=== PATIENT | male | born 1970 | race Caucasian/White ===

== ENCOUNTER → 2017-11-11 14:40 | Outpatient (CLI) | payer OTHER, SELFPAY ==
[2017-11-11 16:06] LABS: AST(SGOT) 81 U/L (15-37); Alanine Aminotransfer ALT/SGPT 136 U/L (16-61); Alkaline Phosphatase 89 U/L (45-117); Bilirubin, Direct 0.18 mg/dL (0.00-0.30); Cholesterol 184 mg/dL (200); Globulin 3.7 g/dL (2.2-4.2); High Density Lipoprotein 53 mg/dL; Protein, Total 7.7 g/dL (6.4-8.2); Triglycerides 93 mg/dL; Very Low Density Lipoprotein 19 mg/dL (5-40)
== END ==
PROVIDERS: Visit Provider Family Medicine
DX: R74.8 Abnormal levels of other serum enzymes (principal); E78.5 Hyperlipidemia, unspecified
CPT/HCPCS: 36415; 80061; 80076

== ENCOUNTER → 2018-05-06 15:38 | Outpatient (CLI) | payer OTHER, SELFPAY ==
[2018-05-06 17:50] LABS: AST(SGOT) 87 U/L (15-37); Alanine Aminotransfer ALT/SGPT 160 U/L (16-61); Albumin, Serum 4.2 g/dL (3.2-5.0); Alkaline Phosphatase 92 U/L (45-117); Anion Gap 11 (5-15); BUN 14 mg/dL (7-18); BUN/Creat Ratio 14.6 RATIO (10-20); Bilirubin, Direct 0.17 mg/dL (0.00-0.30); Chloride 102 mmol/L (98-107); Cholesterol 192 mg/dL (200); Creatinine, Serum 0.96 mg/dL (0.70-1.30); EST Glomerular Filtration Rate 89 mL/min (>60); Est Glom Filt Rate - Afr Amer 107 mL/min (>60); Globulin 3.8 g/dL (2.2-4.2); Glucose 80 mg/dL (74-106); High Density Lipoprotein 52 mg/dL; Potassium 3.8 mmol/L (3.5-5.1); Sodium Level 136 mmol/L (136-145); Triglycerides 107 mg/dL; Very Low Density Lipoprotein 21 mg/dL (5-40)
== END ==
PROVIDERS: Nurse Practitioner Family; Family Provider Family Medicine; PCP Family Medicine; Visit Provider Family Medicine
DX: Z00.00 Encounter for general adult medical examination without abnormal findings (principal)
CPT/HCPCS: 36415; 80048; 80061; 80076

== ENCOUNTER → 2019-05-10 15:21 | Outpatient (CLI) | payer OTHER, SELFPAY ==
[2019-05-10 17:53] LABS: ALB/GLOB Ratio 1.1 RATIO (0.9-2.4); AST(SGOT) 148 U/L (15-37); Alanine Aminotransfer ALT/SGPT 295 U/L (16-61); Albumin, Serum 4.1 g/dL (3.2-5.0); Alkaline Phosphatase 85 U/L (45-117); Anion Gap 9 (5-15); BUN 12 mg/dL (7-18); BUN/Creat Ratio 13.1 RATIO (10-20); Calcium,Total 9.2 mg/dL (8.5-10.1); Chloride 103 mmol/L (98-107); Cholesterol 204 mg/dL (200); Creatinine, Serum 0.92 mg/dL (0.70-1.30); EST Glomerular Filtration Rate 93 mL/min (>60); Est Glom Filt Rate - Afr Amer 112 mL/min (>60); Globulin 3.9 g/dL (2.2-4.2); Glucose 87 mg/dL (74-106); High Density Lipoprotein 61 mg/dL; Potassium 4.2 mmol/L (3.5-5.1); Sodium Level 140 mmol/L (136-145); Triglycerides 110 mg/dL; Very Low Density Lipoprotein 22 mg/dL (5-40)
== END ==
PROVIDERS: Family Provider Family Medicine; PCP Family Medicine; Referring Provider Family Medicine; Visit Provider Family Medicine
DX: Z00.00 Encounter for general adult medical examination without abnormal findings (principal)
CPT/HCPCS: 36415; 80053; 80061

== ENCOUNTER → 2019-05-31 10:10 | Outpatient (CLI) | payer OTHER, SELFPAY ==
--- NOTE | 2019-05-31 10:12 | US_ITS ---
STUDY: ABDOMINAL ULTRASOUND - RIGHT UPPER QUADRANT REASON FOR VISIT: Male, 48 years old transaminitis. TECHNIQUE: Ultrasound evaluation of the right upper quadrant was performed with real-time and static boyer-scale imaging. TECHNICAL QUALITY: Adequate. COMPARISON: January 28, 2014 FINDINGS: Liver: The liver measures 14.8 cm. There is increased echogenicity consistent with fatty infiltration. The bile ducts are within normal limits. There is hepatic color flow. The direction of portal flow is hepatopetal. There is no demonstrated mass lesion. Gallbladder: Normal distended gallbladder. The gallbladder wall measures 1.8 mm. There is a negative sonographic Wilson's sign. There is no pericholecystic fluid. There are no gallstones. Common Bile Duct (C.B.D.): The common bile duct measures 3.1 mm. Pancreas: Normal size of the head and body of the pancreas. There is obscuration of the pancreatic tail secondary to overlying bowel gas. There is normal echogenicity of the pancreas. There is no demonstrated pancreatic mass or cyst. Right Kidney: Normal size of the right kidney. The right kidney measures 11.1 cm in length. Normal renal cortex. There is no demonstrated renal mass or cyst. There is no right hydronephrosis. US/Abdomen Limited IMPRESSION: Fatty infiltration of the liver. Electronically Signed: Johana Buck MD at 16:22 EDT Tel , Service support ,
== END ==
PROVIDERS: Family Provider Family Medicine; PCP Family Medicine; Referring Provider Family Medicine; Visit Provider Family Medicine
DX: R74.0 Nonspecific elevation of levels of transaminase and lactic acid dehydrogenase [LDH] (principal)
CPT/HCPCS: 76705

== ENCOUNTER → 2020-02-03 15:17 | Outpatient (CLI) | payer OTHER, SELFPAY ==
--- NOTE | 2020-02-03 11:04 | COLBX_PTH ---
PATIENT: ROSIBEL CHAMPAGNE LOC: [facility] U#:[id number] AGE/SX: 54/M ROOM: RE02/03/[address]: Dr. Omkar Zabala MD : 1970 BED: DIS: SPEC #: [id number] RECD: 02/03/20 14:54 STATUS: MARLA BEAR #: [id number] PURNIMA: 02/03/20 11:[address]: Omkar Zabala DEPT: SURGICAL PATHOLOGY RECD BY: Darien Weber ENTERED: 02/06/20 09:12 SP TYPE: COLON BX OTHR DR: Dr. Vinnie Palacios MD [facility] Tissues: COLON BIOPSY Procedures: Surgery Specimen Level IV HEADER OPERATION: Colonoscopy with biopsies PRE-OP DIAGNOSIS: Screening / polyp TISSUE SUBMITTED: Right colon polyp biopsies, rule out adenoma MICROSCOPIC DIAGNOSIS Right colon polyp, biopsy: Fragments of colonic mucosa with focal tubular adenomatous changes. SJ:becky 6/23/20 MICROSCOPIC DESCRIPTION Slides are reviewed. GROSS DESCRIPTION Received in fixative is one container labeled with the patient's name and designated right colon polyp biopsy. The specimen consists of multiple irregular fragments of light bender soft tissue that in aggregate measure 0.5 x 0.5 x 0.1 cm. The specimen is totally submitted in one cassette. / SJ:rg 02/06/20 TC:1 CPT: 46141
== END ==
PROVIDERS: PCP Family Medicine; Referring Provider Internal Medicine Gastroenterology; Visit Provider Internal Medicine Gastroenterology
DX: Z12.11 Encounter for screening for malignant neoplasm of colon (principal); K63.5 Polyp of colon
CPT/HCPCS: 88305

== ENCOUNTER → 2020-06-04 | Outpatient (CLI) | payer OTHER, SELFPAY ==
[2020-06-04 18:50] LABS: ALB/GLOB Ratio 1.1 RATIO (0.9-2.4); AST(SGOT) 111 U/L (15-37); Alanine Aminotransfer ALT/SGPT 296 U/L (16-61); Albumin, Serum 4.1 g/dL (3.2-5.0); Alkaline Phosphatase 93 U/L (45-117); Anion Gap 7 (5-15); BUN 15 mg/dL (7-18); BUN/Creat Ratio 17.5 RATIO (10-20); Chloride 100 mmol/L (98-107); Cholesterol 215 mg/dL (200); Creatinine, Serum 0.86 mg/dL (0.70-1.30); EST Glomerular Filtration Rate 100 mL/min (>60); Est Glom Filt Rate - Afr Amer 121 mL/min (>60); Globulin 3.7 g/dL (2.2-4.2); Glucose 83 mg/dL (74-106); High Density Lipoprotein 69 mg/dL; Potassium 3.9 mmol/L (3.5-5.1); Protein, Total 7.8 g/dL (6.4-8.2); Sodium Level 136 mmol/L (136-145); Triglycerides 86 mg/dL; Very Low Density Lipoprotein 17 mg/dL (5-40)
== END | disposition home or self-care (01) ==
LOC: MFPLAB 16:24
PROVIDERS: PCP Family Medicine; Visit Provider Family Medicine
DX: Z00.00 Encounter for general adult medical examination without abnormal findings (principal)
CPT/HCPCS: 36415; 80053; 80061

== ENCOUNTER 2020-10-25 16:54 | Outpatient (RCR) | payer OTHER, SELFPAY ==
[2020-10-25] MEDS: COVID-19 VACC, MRNA(PFIZER)/PF 30 MCG/0.3 ML SYRINGE IM (16:35)
[2020-11-15] MEDS: COVID-19 VACC, MRNA(PFIZER)/PF 30 MCG/0.3 ML SYRINGE IM (16:26)
== END 2021-01-22 23:59 ==
LOC: IMMUN 16:54
PROVIDERS: PCP Family Medicine; Visit Provider Family Medicine
DX: Z23 Encounter for immunization (principal)
CPT/HCPCS: 0001A; 0002A; 91300

== ENCOUNTER → 2021-05-28 15:10 | Outpatient (CLI) | payer OTHER, SELFPAY ==
[2021-05-28 18:11] LABS: Vitamin D,25 Hydroxy 30.6 ng/mL
[2021-05-28 18:39] LABS: Anion Gap 9 (5-15); BUN 17 mg/dL (7-18); BUN/Creat Ratio 18.2 RATIO (10-20); Calcium,Total 9.1 mg/dL (8.5-10.1); Chloride 98 mmol/L (98-107); Cholesterol 205 mg/dL (200); Creatinine, Serum 0.93 mg/dL (0.70-1.30); EST Glomerular Filtration Rate 90 mL/min (>60); Est Glom Filt Rate - Afr Amer 109 mL/min (>60); Glucose 88 mg/dL (74-106); High Density Lipoprotein 60 mg/dL; Potassium 4.2 mmol/L (3.5-5.1); Sodium Level 134 mmol/L (136-145); Triglycerides 192 mg/dL; Very Low Density Lipoprotein 38 mg/dL (5-40)
== END ==
PROVIDERS: PCP Family Medicine; Referring Provider Family Medicine; Visit Provider Family Medicine
DX: Z00.00 Encounter for general adult medical examination without abnormal findings (principal)
CPT/HCPCS: 36415; 80048; 80061; 82306; 84153; G0103

== ENCOUNTER → 2023-04-27 | Outpatient (CLI) | payer OTHER, SELFPAY ==
[2023-04-27 17:45] LABS: Absolute Lymphocyte Count 1.73 X10^3/uL (0.83-4.51); Absolute Neutrophil Count 3.9 X10^3/uL (2.0-7.7); Basophil# 0.04 X10^3/uL; Basophil% 0.6 % (0-1); Eosinophil# 0.11 X10^3/uL; Eosinophils% 1.7 % (0-5); Hematocrit 49.1 % (40-54); Hemoglobin 16.6 g/dL (13.0-16.5); Lymphocyte # 1.73 X10^3/ul (0.83-4.51); Lymphocyte % 26.5 % (19-41); Mean Corp Hgb Conc 33.8 g/dL (32-36); Mean Corpuscular Hgb 32.4 pg (27.0-32.0); Mean Corpuscular Volume 95.7 fL (80-94); Mean Platelet Vol. 11.4 fl (6.2-12.0); Monocyte# 0.75 X10^3/uL; Monocyte% 11.5 % (0-10); NRBC Flagged by Analyzer 0 % (0-5); Neutrophil # 3.87 X10^3/uL (2.7-7.7); Neutrophil % 59.4 % (47-70); Platelet Count 208 K/mm3 (150-450); RBC Distribution Width CV 12.5 % (11.6-14.6); RBC Distribution Width SD 44.6 fl (35.1-43.9); Red Blood Count 5.13 M/mm3 (4.6-6.2); White Blood Count 6.5 K/mm3 (4.4-11.0)
[2023-04-27 18:42] LABS: ALB/GLOB Ratio 1.1 RATIO (0.9-2.4); AST(SGOT) 141 U/L (15-37); Alanine Aminotransfer ALT/SGPT 398 U/L (16-61); Alkaline Phosphatase 106 U/L (45-117); Anion Gap 9 (5-15); BUN 18 mg/dL (7-18); BUN/Creat Ratio 17.1 RATIO (10-20); Calcium,Total 8.9 mg/dL (8.5-10.1); Chloride 100 mmol/L (98-107); Cholesterol 176 mg/dL (200); Creatinine, Serum 1.05 mg/dL (0.70-1.30); EST Glomerular Filtration Rate 78 mL/min (>60); Est Glom Filt Rate - Afr Amer 94 mL/min (>60); Globulin 3.8 g/dL (2.2-4.2); Glucose 91 mg/dL (74-106); High Density Lipoprotein 49 mg/dL; PSA,Total - Annual Screen 0.55 ng/mL (0.00-4.00); Protein, Total 7.8 g/dL (6.4-8.2); Sodium Level 133 mmol/L (136-145); Triglycerides 484 mg/dL
[2023-04-27 19:04] LABS: Hemoglobin A1c 5.5 % (3.8-5.6)
[2023-04-28 14:55] LABS: Thyroid Stim Hormone (TSH) 1.51 uIU/mL (0.358-3.74)
== END | disposition home or self-care (01) ==
LOC: MFPLAB 15:09
PROVIDERS: PCP Family Medicine; Visit Provider Family Medicine
DX: Z12.5 Encounter for screening for malignant neoplasm of prostate (principal); Z13.0 Encounter for screening for diseases of the blood and blood-forming organs and certain disorders involving the immune mechanism; Z13.6 Encounter for screening for cardiovascular disorders; E78.5 Hyperlipidemia, unspecified; I10 Essential (primary) hypertension
CPT/HCPCS: 36415; 80053; 80061; 83036; 84153; 84443; 85025; G0103

== ENCOUNTER → 2024-05-23 | Outpatient (CLI) | payer OTHER, SELFPAY ==
--- NOTE | 2024-05-23 15:00 | RAD_ITS ---
EXAM: XR CERVICAL SPINE, 4 OR 5 VIEWS CLINICAL INDICATION: neck neuropathy TECHNIQUE: Frontal, lateral and bilateral oblique views of the cervical spine. COMPARISON: No relevant prior studies available. FINDINGS: VERTEBRAE: Straightening of expected cervical lordosis is nonspecific, perhaps positional. Multilevel facet, uncovertebral joint, and endplate osteophytosis. Apparent at least mild encroachment of the neural foramina left greater than right at the level of C6-C7. Preserved vertebral body height. No acute fracture. No spondylolisthesis. DISC SPACES: Multilevel intervertebral disc height loss, worst at C5-C6 and C6-C7. SOFT TISSUES: No significant abnormality. No prevertebral soft tissue widening. LUNG APICES: Clear. RAD/Cerv Spine 4 or 5 Views IMPRESSION: Multilevel degenerative changes worse at C5-C6 and C6-C7. No acute osseous abnormalities. Electronically Signed: Todd Bass DO at 22:37 EDT ,
[2024-05-23 18:07] LABS: Absolute Lymphocyte Count 1.56 X10^3/uL (0.83-4.51); Absolute Neutrophil Count 1.7 X10^3/uL (2.0-7.7); Basophil# 0.03 X10^3/uL; Basophil% 0.8 % (0-1); Eosinophil# 0.04 X10^3/uL; Hematocrit 42.8 % (40-54); Hemoglobin 14.9 g/dL (13.0-16.5); Lymphocyte # 1.56 X10^3/ul (0.83-4.51); Lymphocyte % 39.5 % (19-41); Mean Corp Hgb Conc 34.8 g/dL (32-36); Mean Corpuscular Hgb 32.1 pg (27.0-32.0); Mean Corpuscular Volume 92.2 fL (80-94); Mean Platelet Vol. 10.5 fl (6.2-12.0); Monocyte# 0.66 X10^3/uL; Monocyte% 16.7 % (0-10); NRBC Flagged by Analyzer 0 % (0-5); Neutrophil # 1.65 X10^3/uL (2.7-7.7); Neutrophil % 41.7 % (47-70); Platelet Count 192 K/mm3 (150-450); RBC Distribution Width CV 11.9 % (11.6-14.6); RBC Distribution Width SD 40.4 fl (35.1-43.9); Red Blood Count 4.64 M/mm3 (4.6-6.2)
[2024-05-23 18:14] LABS: ALB/GLOB Ratio 1.1 RATIO (0.9-2.4); AST(SGOT) 80 U/L (15-37); Alanine Aminotransfer ALT/SGPT 143 U/L (16-61); Alkaline Phosphatase 91 U/L (45-117); Anion Gap 8 (5-15); BUN 16 mg/dL (7-18); BUN/Creat Ratio 17.3 RATIO (10-20); Calcium,Total 9.8 mg/dL (8.5-10.1); Chloride 101 mmol/L (98-107); Cholesterol 152 mg/dL (200); Creatinine, Serum 0.93 mg/dL (0.70-1.30); EST Glomerular Filtration Rate 90 mL/min (>60); Est Glom Filt Rate - Afr Amer 109 mL/min (>60); Globulin 3.8 g/dL (2.2-4.2); Glucose 78 mg/dL (74-106); High Density Lipoprotein 56 mg/dL; Potassium 4.3 mmol/L (3.5-5.1); Protein, Total 7.8 g/dL (6.4-8.2); Sodium Level 134 mmol/L (136-145); Triglycerides 91 mg/dL; Very Low Density Lipoprotein 18 mg/dL (5-40)
== END | disposition home or self-care (01) ==
PROVIDERS: PCP Family Medicine; Referring Provider Family Medicine; Visit Provider Family Medicine
DX: I10 Essential (primary) hypertension (principal); Z13.1 Encounter for screening for diabetes mellitus; Z13.220 Encounter for screening for lipoid disorders; G56.21 Lesion of ulnar nerve, right upper limb
CPT/HCPCS: 36415; 72050; 80053; 80061; 85025

== ENCOUNTER → 2024-06-15 | Outpatient (CLI) | payer OTHER, SELFPAY ==
--- NOTE | 2024-06-15 16:44 | STRESSREP ---
Stress Test Report Exercise stress test. 53-year-old man with a history of dyspnea on exertion Stress protocol: Resting EKG demonstrates normal sinus rhythm with a rate of 72 bpm resting blood pressure is 142/78 mmHg. The patient exercised according to the regular [place] protocol for a total duration of 15 minutes attaining a maximum heart rate of 184 bpm which was 111% of maximum predicted heart rate; the maximum workload was 17.2 METS metabolic equivalents. At rest there were no ST or T wave changes noted to suggest ischemia and at peak exercise upsloping ST changes only were noted which did not meet the criteria for ischemia. No clinical angina was noted the test was terminated due to the target heart rate being achieved/fatigue. The peak blood pressure was 182/100 mmHg. Rate-pressure product was 32,700. Conclusion: Exercise stress test with no EKG criteria for ischemia at a high workload. Good Functional capacity.
== END | disposition home or self-care (01) ==
LOC: CVS 12:25
PROVIDERS: PCP Family Medicine; Referring Provider Family Medicine; Visit Provider Family Medicine
DX: R06.02 Shortness of breath (principal)
CPT/HCPCS: 93017

== ENCOUNTER → 2025-05-09 | Outpatient (CLI) | payer BC, SELFPAY ==
[2025-05-09 18:57] LABS: Hematocrit 45.4 % (40-54); Hemoglobin 15.9 g/dL (13.0-16.5); Immature Granulocytes Count 0.010 X10^3/uL (0.0-0.0); Mean Corp Hgb Conc 35.0 g/dL (32-36); Mean Corpuscular Volume 92.3 fL (80-94); Mean Platelet Vol. 10.8 fl (6.2-12.0); NRBC Flagged by Analyzer 0 % (0-5); Platelet Count 177 K/mm3 (150-450); RBC Distribution Width CV 12.6 % (11.6-14.6); RBC Distribution Width SD 42.9 fl (35.1-43.9); Red Blood Count 4.92 M/mm3 (4.6-6.2); White Blood Count 3.8 K/mm3 (4.4-11.0)
[2025-05-09 19:13] LABS: AST(SGOT) 92 U/L (<=37); Alanine Aminotransfer ALT/SGPT 141 U/L (<=46); Albumin, Serum 4.6 g/dL (3.5-5.0); Alkaline Phosphatase 80 U/L (40-129); Anion Gap 16 (5-15); BUN 14 mg/dL (4-19); BUN/Creat Ratio 15.6 RATIO (10-20); Calcium,Total 9.8 mg/dL (7.6-11.0); Carbon Dioxide 24.0 mmol/L (21.0-32.0); Chloride 98 mmol/L (98-108); Cholesterol 203 mg/dL (<=200); Globulin 2.9 g/dL (2.2-4.2); Glucose 90 mg/dL (70-99); Low Density Lipoprotein Calc. 130 mg/dL; PSA,Total - Annual Screen 0.47 ng/mL (0.02-4.00); Potassium 4.1 mmol/L (3.3-5.1); Triglycerides 76 mg/dL; Very Low Density Lipoprotein 15 mg/dL (5-40); cholesterol:hdl ratio screen 3.50
== END | disposition home or self-care (01) ==
LOC: MFPLAB 16:06
PROVIDERS: PCP Family Medicine; Visit Provider Family Medicine
DX: Z13.220 Encounter for screening for lipoid disorders (principal); Z13.1 Encounter for screening for diabetes mellitus; Z12.5 Encounter for screening for malignant neoplasm of prostate; I10 Essential (primary) hypertension
CPT/HCPCS: 36415; 80053; 80061; 84153; 85025; G0103

== ENCOUNTER 2025-05-25 14:15 | Emergency (ER) | payer BC, SELFPAY ==
[2025-05-25 14:17] VITALS: BP 171/100; PULSE 77; RESP 18; TEMP 36.8; O2SAT 100; BMI 25.8
--- NOTE | 2025-05-25 14:26 | CT_ITS ---
PROCEDURE: CT ABDOMEN/PELVIS W IV CONT ONLY 05/25/2025 REASON FOR EXAM: LOWER ABDOMINAL PAIN TECHNIQUE: Procedure Code: [id number] Modality: CT Procedure: ABDOMEN/PELVIS W IV CONT ONLY Coronal and Sagittal reconstruction series were provided. CONTRAST: Isovue 370 VOLUME: 96 mL One or more dose reduction techniques were used (e.g., Automated exposure control, adjustment of the mA and/or kV according to patient size, use of iterative reconstruction technique. RADIATION DOSE SUMMARY: DLP: 543.91 mGycm COMPARISON: None. FINDINGS: Lung bases: Clear. Liver: No significant abnormality. Gallbladder: Unremarkable. Spleen: Unremarkable. Pancreas: Unremarkable. Adrenals: Unremarkable. Kidneys: Unremarkable. No urolithiasis or hydronephrosis. Bladder: Mild circumferential bladder wall thickening likely reflects hypertrophy. Reproductive Organs: Mildly enlarged prostate. Vasectomy surgical clips. Bowel: Unremarkable stomach and small bowel. No evidence of obstruction. Normal appendix. Mild distal colonic diverticulosis. Segmental colitis/diverticulitis involving the sigmoid colon. No perforation. Lymph nodes: No suspicious lymph node enlargement. Vasculature: Normal caliber abdominal aorta and IVC. Peritoneum / Retroperitoneum: No free fluid or air. Bones: Minimal degenerative changes of the spine. Small bilateral fat containing inguinal hernias. CT/Abdomen/Pelvis W IV Cont ONLY IMPRESSION: 1. Acute uncomplicated sigmoid diverticulitis/colitis. 2. Mildly enlarged prostate with bladder wall thickening/hypertrophy. 3. Small bilateral fat containing inguinal hernias. Reading Location: [id number]
--- NOTE | 2025-05-25 14:26 | EDS_ITS ---
HPI HPI - GI History of Present Illness Chief Complaint: Abd Pain Narrative Narrative: 54-year-old male past medical history of remote bladder tumor removal, presents with 4 days of lower abdominal pain. He states has been gradual in onset but getting worse although today may be a little bit better. Describes lower abdominal pain right in the middle, radiating to both sides. He was having normal bowel movements over the last few days. However, today he only had a small bowel movement. He denies any fevers but felt chilled with it yesterday. No nausea or vomiting. No other exacerbating or alleviating factors. [facility] Medical History HTN (hypertension) Hyperlipidemia Home Medications ?Medication ?Instructions ?Recorded ?Last Taken ?Type cefdinir 300 mg capsule 300 mg PO BID 10 days #20 ca ps 05/25/25 Unknown Rx lisinopril 20 mg tablet 20 mg PO DAILY 05/25/25 Unkn own History metronidazole 500 mg tablet 500 mg PO TID 10 days #30 tabs 05/25/25 Unknown Rx oxycodone 5 mg tablet 5 mg PO Q6H PRN pain 3 days #12 05/25/25 Unknown Rx tabs Allergy/AdvReac Type Severity Reaction Status Date / Time No Known Allergies Allergy Verified 05/25/25 14:25 Social History Smoking Status: Never smoker ROS ROS ED ROS Narrative Review of systems positive for lower abdominal pain, suprapubic radiating to both sides. No fever, positive chills. Small bowel movement today but no diarrhea. Denies dysuria or hematuria. No exacerbating or alleviating factors. EXAM Physical Exam Narrative Exam Narrative: Afebrile. Vital signs noted. Nontoxic-appearing. Cardiovascular examination reveals a regular rate and rhythm. Lungs are clear to auscultation bilaterally. Abdominal examination shows mild tenderness to palpation of the suprapubic area radiating outwards, no guarding or rebound. Positive bowel sounds. Neurological examination nonfocal, nonlateralizing. Awake, alert, interactive, appropriate. Moves all extremities. Const Vital Signs: 05/25/25 14:17 05/25/25 16:05 05/25/25 17:23 Temperature 98.2 F 98.2 F Temperature Source Oral Pulse Rate 77 71 Respiratory Rate 18 18 Blood Pressure 171/100 H 127/85 H 145/92 H Blood Pressure Mean 123 99 109 Pulse Ox 100 99 Oxygen Delivery Method Room Air MDM MDM MDM Narrative Medical decision making narrative: The differential diagnosis includes but not limited to sigmoid diverticulitis versus cystitis versus nonspecific abdominal pain. I have low suspicion for bowel obstruction because a history and physical does not support this. He may have constipation as well. Comprehensive workup was pursued. He was administered morphine and ondansetron and a bolus of normal saline. I do feel CT imaging is indicated. Urinalysis will be obtained to rule out infection. I have lower suspicion for ureterolithiasis because his pain is bilateral. I reviewed his laboratory work and he has normal white count of 7.2 with hemoglobin 15.4, hematocrit 44.3, platelet count 187. CMP significant for chloride of 96, low, which I think is nonspecific. BUN normal at 12 and creatinine 0.85. LFTs are slightly elevated at 41 and 68 which I think is nonspecific as well. Urinalysis negative for infection with negative ketones. CT of the abdomen and pelvis radiology report obtained and reviewed. He has uncomplicated sigmoid diverticulitis. No noted perforation or abscess. At this point in time, I feel he can be treated as an outpatient with oral antibiotics. His is at the bedside currently. He was given his first doses of cefdinir and Flagyl here in the emergency department. I discussed analgesia with them, and he was written a prescription for oxycodone tablets. Corrine kapadia will take the antibiotics for 10 days. Follow-up with primary care in the next 3 to 5 days. He was told of the risk of perforation and abscess development. He should return with fever, increased pain, or any new or worsening symptoms. Disposition is discharged home in stable condition. History & Record Review Discussion w/independent historian: Patient Additional record(s) reviewed:: No prior records (No prior ED visits) Lab Data Attestation: I reviewed the patient's lab results. Labs: Laboratory Results - last 24 hr 05/25/25 05/25/25 14:20 14:40 WBC 7.2 RBC 4.77 Hgb 15.4 Hct 44.3 MCV 92.9 MCH 32.3 H MCHC 34.8 RDW Std Deviation 42.5 RDW Coeff of Anton 12.4 Plt Count 187 MPV 10.3 Immature Gran % (Auto) 0.300 Neut % (Auto) 63.5 Lymph % (Auto) 24.2 Donley % (Auto) 11.3 H Eos % (Auto) 0.3 Baso % (Auto) 0.4 Absolute Neuts (auto) 4.6 Absolute Lymphs (auto) 1.75 Nucleated RBC % 0 Sodium 134 Potassium 3.9 Chloride 96 L Carbon Dioxide 26.8 Anion Gap 11 BUN 12 Creatinine 0.85 Estim Creat Clear Calc 87.57 Est GFR (MDRD) Non-Af 102 BUN/Creatinine Ratio 14.6 Glucose 96 Calcium 9.5 Total Bilirubin 0.97 AST 41 H ALT 68 H Alkaline Phosphatase 83 Total Protein 7.7 Albumin 4.6 Globulin 3.1 Albumin/Globulin Ratio 1.5 Urine Color Yellow Urine Clarity Clear Urine pH 6.0 Ur Specific [place] 1.010 Urine Protein 15 H Urine Glucose (UA) Normal Urine Ketones Negative Urine Occult Blood Negative Urine Nitrite Negative Urine Bilirubin Negative Urine Urobilinogen Normal Ur Leukocyte Esterase Negative Urine RBC 0 SEEN Urine WBC 0 SEEN Ur Squamous Epith Cells 0 SEEN Urine Bacteria 0 SEEN Urine Mucus 0 SEEN Radiography Diagnostic Testing: Clinical Impression(s) from Imaging Studies Abdomen/Pelvis CT 05/25/25 14:26 IMPRESSION: 1. Acute uncomplicated sigmoid diverticulitis/colitis. 2. Mildly enlarged prostate with bladder wall thickening/hypertrophy. 3. Small bilateral fat containing inguinal hernias. Reading Location: [facility] Discharge Plan Triage Chief Complaint: Abd Pain ED Provider: Rob Flowers Dx/Rx/DC Orders Clinical Impression: Sigmoid diverticulitis, Abdominal pain Instructions: ED Diverticulitis Prescriptions: New cefdinir 300 mg capsule 300 mg PO BID 10 Days Qty: 20 0RF metronidazole 500 mg tablet 500 mg PO TID 10 Days Qty: 30 0RF oxycodone 5 mg tablet 5 mg PO Q6H PRN (Reason: pain) 3 Days Qty: 12 0RF No Action lisinopril 20 mg tablet 20 mg PO DAILY Primary Care Provider: Rhoda Gonzalez Referrals: Rhoda Gonzalez MD [Primary Care Provider, Family Practice] - 3-5 Days Activity Restrictions/Additional Instructions: Return to the emergency department with fever, increased pain, new or worsening symptoms. Follow-up with your primary care provider in the next 3 to 5 days for checkup as there are risks of perforation and abscess development. Take all of the antibiotics as directed. Do not drink alcohol while taking metronidazole. Print Language: [place] Disposition Disposition: Home, Self Care Discharge Date/Time: 05/25/25 17:24
[2025-05-25] MEDS: 0.9% Normal Saline (1000mL) 1,000 ML 999 ML IV (14:39)
[2025-05-25 14:44] LABS: Mucous, Urine 0 SEEN /hpf (<or=2+); Red Blood Cells-Urine 0 SEEN /hpf (0-5); Squamous Epithelial Cells - UA 0 SEEN /hpf (0-5)
[2025-05-25 14:46] LABS: Color, Urine Yellow (Yellow); Glucose, Dipstick Normal (Normal); Ketone-Dipstick Negative (Negative); Leukocyte Esterase-Dipstick Negative /ul (Negative); Nitrite-Dipstick Negative (Negative); Occult Blood-Urine Negative /ul (Negative); Protein-Dipstick 15 mg/dl (Negative); Specific Gravity, Urine 1.010 (1.002-1.030); Urine Bilirubin Dipstick Negative (Negative)
[2025-05-25 14:54] LABS: Hematocrit 44.3 % (40-54); Hemoglobin 15.4 g/dL (13.0-16.5); Immature Granulocytes Count 0.020 X10^3/uL (0.0-0.0); Mean Corp Hgb Conc 34.8 g/dL (32-36); Mean Corpuscular Volume 92.9 fL (80-94); Mean Platelet Vol. 10.3 fl (6.2-12.0); NRBC Flagged by Analyzer 0 % (0-5); Platelet Count 187 K/mm3 (150-450); RBC Distribution Width CV 12.4 % (11.6-14.6); RBC Distribution Width SD 42.5 fl (35.1-43.9); Red Blood Count 4.77 M/mm3 (4.6-6.2); White Blood Count 7.2 K/mm3 (4.4-11.0)
[2025-05-25 15:07] LABS: AST(SGOT) 41 U/L (<=37); Alanine Aminotransfer ALT/SGPT 68 U/L (<=46); Albumin, Serum 4.6 g/dL (3.5-5.0); Alkaline Phosphatase 83 U/L (40-129); Anion Gap 11 (5-15); BUN 12 mg/dL (4-19); BUN/Creat Ratio 14.6 RATIO (10-20); Calcium,Total 9.5 mg/dL (7.6-11.0); Carbon Dioxide 26.8 mmol/L (21.0-32.0); Chloride 96 mmol/L (98-108); Estimated Creatinine Clearance 87.57 ml/min (50-250); Globulin 3.1 g/dL (2.2-4.2); Glucose 96 mg/dL (70-99); Potassium 3.9 mmol/L (3.3-5.1)
[2025-05-25 16:05] VITALS: BP 127/85
[2025-05-25 17:23] VITALS: BP 145/92; PULSE 71; RESP 18; TEMP 36.8; O2SAT 99
== END 2025-05-25 17:24 | disposition home or self-care (01) ==
PROVIDERS: Emergency Provider Emergency Medicine; PCP Family Medicine; Visit Provider Emergency Medicine
DX: K57.32 Diverticulitis of large intestine without perforation or abscess without bleeding (principal); I10 Essential (primary) hypertension; R10.9 Unspecified abdominal pain; E78.5 Hyperlipidemia, unspecified
CPT/HCPCS: 74177; 80053; 81001; 85025; 96361; 96374; 96375; 99284; Q9967